=== PATIENT | male | born 1995 | race African-American/Black ===

== ENCOUNTER 2024-06-05 22:28 | Emergency (ER) | payer BC, MEDICAID ==
[2024-06-05 22:45] VITALS: PULSE 102; RESP 16
== END 2024-06-05 23:31 | disposition left against medical advice (07) ==
LOC: ER 22:28
DX: R68.89 Other general symptoms and signs (principal); Z53.21 Procedure and treatment not carried out due to patient leaving prior to being seen by health care provider
CPT/HCPCS: 82962